=== PATIENT | male | born 1955 | race Caucasian/White ===

== ENCOUNTER 2020-02-01 08:55 | Day surgery (SDC) | payer OTHER, SELFPAY ==
[2020-01-25 11:03] VITALS: BMI 26.9
--- NOTE | 2020-01-30 09:35 | HO.ANESPROP2 ---
Documented by User: Blaire Priceney 01/30/20 09:37 HPI - Anesthesia Eval Consult details Narrative: 64yo M for EGD and Colonoscopy [facility] Past Medical History Medical History Diverticulosis Lab test negative for COVID-19 virus Surgical History Surgical History Hx of colonoscopy Social History Social History Smoking Status: Never smoker Use of substances other than those prescribed or required for medical reasons: No Advance Directives Information Provided: No Recently lost weight without trying: No Meds Allergies Allergy/AdvReac Type Severity Reaction Status Date / Time doxycycline [DOXYCYCLINE] Allergy Severe Anaphylaxis Verified 02/01/20 09:31 Home Medications Medication Instructions Recorded Confirmed Type omeprazole 20 mg PO DAILY 01/25/20 01/25/20 History Exam Exam Date and Time: January 30, 2020 0935 Height,Weight and Vital Signs: Height 6 ft Weight 90.265 kg Pertinent Lab Results Pertinent Lab Results: Laboratory Tests 01/01/20 01/01/20 19:15 19:15 WBC 6.7 Hgb 14.2 Hct 41.7 L Plt Count 212 Sodium 141 Potassium 4.4 Chloride 104 BUN 14 Creatinine 1.05 Assessment and Plan Assessment Anesthesia Assessment: Chart Reviewed Documented by User: Kaleb Amaro MD 02/01/20 10:06 [facility] Past Medical History Medical History Diverticulosis Lab test negative for COVID-19 virus Surgical History Surgical History Hx of colonoscopy Social History Social History Smoking Status: Never smoker Use of substances other than those prescribed or required for medical reasons: No Advance Directives Information Provided: No Recently lost weight without trying: No Meds Allergies Allergy/AdvReac Type Severity Reaction Status Date / Time doxycycline [DOXYCYCLINE] Allergy Severe Anaphylaxis Verified 02/01/20 09:31 Home Medications Medication Instructions Recorded Confirmed Type omeprazole 20 mg PO DAILY 01/25/20 01/25/20 History Exam Airway Mallampati Class: II TM Dist: >3cm Neck ROM: Full Heart: rrr Lungs: nl Other: ao Assessment and Plan Assessment Anesthesia Assessment: Anesthesia Plan Discussed and Chart Reviewed Final Anesthetic Review NPO: Yes ASA Class: I Final Preanesthetic Review: No Changes in Pt Med Stat, Meds/Allgs Chart Reviewed, Consent Obtained/Reviewed and Anes Risks/Benef Reviewed Patient Risk: Low Procedure Risk: Low Anesthetic Plan Anesthetic Plan: MAC: Disposition: Standard PACU
[2020-02-01 09:29] VITALS: BP 137/79; PULSE 62; RESP 16; TEMP 35.8; O2SAT 98
[2020-02-01] MEDS: Lactated Ringers 1,000 ML 100 ML IVCONT (09:32)
[2020-02-01 09:36] VITALS: BMI 27.1
--- NOTE | 2020-02-01 10:15 | MHC.SHP ---
Pre-Procedural Eval Section A The patient is an INPATIENT: No Changes since office visit: No Cold of Flu in the past 2 weeks, No New Medical Problems, No Changes in Medication and No Patient answered all questions The History & Physical has been completed within 30 days and I have reviewed it.: Yes Section B Chief Complaint: Abnormal Weight Loss, Rectal Bleeding Allergies: Allergies Allergy/AdvReac Type Severity Reaction Status Date / Time doxycycline [DOXYCYCLINE] Allergy Severe Anaphylaxis Verified 02/01/20 09:31 Plan Patient has been examined and remains a candidate for the planned procedure
--- NOTE | 2020-02-01 10:51 | P.PCN_ITS ---
Brief Operative Note Date of procedure: 02/01/20 Pre-op diagnosis: Episode rectal bleeding, Diverticulosis, abdominal pain, Pos itive family hx Post-op diagnosis: other (EGD neg. Colonoscopy: Diverticulosis l side, 1+ Internal Hemorrhoids) Procedure: EGD no bx, colonoscopy--no path Anesthesia: MAC (Nito Metzger CRNA) Surgeon: Tracie Wei Estimated blood loss (mL): 0 Pathology: none sent Condition: stable Disposition: PACU
[2020-02-01 10:52] VITALS: BP 94/56; PULSE 100; RESP 16; TEMP 35.9; O2SAT 97
[2020-02-01 10:56] VITALS: BP 104/64
[2020-02-01 11:06] VITALS: BP 117/68; PULSE 76; RESP 18; O2SAT 98
[2020-02-01 11:22] VITALS: BP 121/77; PULSE 82; RESP 20; TEMP 36.2; O2SAT 99
--- NOTE | 2020-02-01 11:41 | HO.POSTANES ---
Post Anesthesia Evaluation Post Anesthesia Evaluation Vital Signs: Vital Signs Temp Pulse Resp BP Pulse Ox 02/01/20 11:22 97.2 F 82 20 121/77 99 02/01/20 11:06 76 18 117/68 98 02/01/20 10:56 104/64 02/01/20 10:52 96.7 F L 100 16 94/56 L 97 02/01/20 09:29 96.5 F L 62 16 137/79 98 Anesthesia: Monitored Mental Status: Awake Pain Control: Satisfactory Nausea/Vomiting: None Hydration: Adequate Anesthesia-Related Issues: No Anes. Related Issues
--- NOTE | 2020-02-01 21:14 | OP_ITS ---
SURGEON: Tracie Wei MD PROCEDURE PERFORMED: EGD without biopsy, colonoscopy without biopsy. ESTIMATED BLOOD LOSS: None. COMPLICATIONS: None. ANESTHESIA: Monitored. ANESTHESIOLOGIST: Jeniffer Metzger CRNA. ASSISTANTS: No benefits assistant. SPECIMENS: No specimens removed. PREOPERATIVE DIAGNOSES: Episode of rectal bleeding and pain, for which the patient went to the emergency room; Question Diverticular bleed, Colon Cancer Screening, Abdominal pain. POSTOPERATIVE DIAGNOSES: EGD. Normal exam. Colonoscopy. Extensive diverticulosis. HVAC INSTALLATION TECHNICIAN: Dr. Wei. DESCRIPTION OF PROCEDURES: EGD: Video endoscope was introduced without difficulty. It was navigated into the posterior pharynx and into the esophagus. Esophageal mucosa was normal. GE junction was clear and distinct. On entering the stomach, mucosa was normal throughout. Duodenal bulb and duodenum had endoscopically normal villi. Ampullary area was seen and appeared normal. COLONOSCOPY: Prostate was not well felt. Video colonoscope was introduced without difficulty. It was navigated into the rectosigmoid and sigmoid area, slightly telescoped. There were diverticula present throughout this area. Once in the descending colon, we proceeded through transverse, ascending down into the cecum. Appendiceal orifice was seen. Ileocecal valve was well seen. Prep was excellent. Slow rotational views on withdrawing the scope. Anorectal verge was clear. 1+ internal hemorrhoids were seen. PLAN: Repeat colon cancer screening to be reconsidered in 5 years. Presumptive diverticular bleed is consistent with the current findings. Upper endoscopic evaluation shows no premalignant conditions or any acute findings. Further office followup may be appropriate if upper GI symptoms/pain persists. GRAFT OR IMPLANTS: No grafts or implants. CONDITION: Postprocedure, stable. Tracie Wei MD MEN/MODL / [id number] [facility]
== END 2020-02-01 12:01 | disposition home or self-care (01) ==
PROVIDERS: Internal Medicine Gastroenterology; PCP Hospitalist; Visit Provider Internal Medicine
PROC: (CPT 45378; principal; 2020-02-01 10:00)
DX: K62.5 Hemorrhage of anus and rectum (principal); R10.9 Unspecified abdominal pain; Z80.0 Family history of malignant neoplasm of digestive organs; K57.30 Diverticulosis of large intestine without perforation or abscess without bleeding; K64.8 Other hemorrhoids; Z79.899 Other long term (current) drug therapy; Z88.1 Allergy status to other antibiotic agents
CPT/HCPCS: 45378; 43235

== ENCOUNTER → 2020-02-26 14:43 | Outpatient (BNVA) | payer OTHER, SELFPAY | PROVIDERS: PCP Hospitalist; Referring Provider Hospitalist; Visit Provider Internal Medicine Gastroenterology | DX: Z76.89 Persons encountering health services in other specified circumstances (principal) ==

== ENCOUNTER 2020-06-05 10:33 | Emergency (ER) | payer OTHER, SELFPAY ==
--- NOTE | ~2020-06-05 | CT_ITS ---
EXAMINATION: CT ABDOMEN AND PELVIS WITH CONTRAST CLINICAL INFORMATION: Left lower quadrant abdominal pain with diarrhea and nausea. COMPARISON: CT abdomen and pelvis 01/01/2020. TECHNIQUE: Multidetector volumetric images were obtained from the superior aspect of the liver through the pubic symphysis following administration 85 mL of Omnipaque 350 intravenous contrast. Sagittal and coronal reformatted images were obtained on the technologist's workstation. Oral Contrast: No. This CT examination was performed using dose optimization techniques as appropriate, variously including the following: *Automated exposure control. *Adjustment of mA and/or kV according to patient size (this includes techniques or standardized protocols for targeted exams where dose is matched to indication/reason for exam; i.e. extremities or head). *Use of iterative reconstruction technique. DLP: 623 mGy-cm FINDINGS: LUNG BASES: See report of chest CT same day. Bibasilar atelectasis. LIVER, GALLBLADDER, AND BILIARY TREE: The liver is normal in size but demonstrates slightly decreased attenuation with focal areas of sparing around the gallbladder. Findings are consistent with hepatic steatosis. No focal liver mass or bile duct dilatation is seen. The gallbladder is unremarkable with no evidence of radiopaque gallstones, gallbladder wall thickening, or obvious pericholecystic inflammatory changes. PANCREAS: Unremarkable. SPLEEN: Unremarkable. ADRENAL GLANDS: Unremarkable. KIDNEYS AND URETERS: The kidneys are normal in size, shape, and attenuation. No hydronephrosis, hydroureter, or calculi seen. A large right lower pole renal cyst is again seen along with a tiny cortical left lower pole cyst. No perinephric stranding. BLADDER: Unremarkable. GASTROINTESTINAL TRACT: A posterior 2 cm gastric diverticulum is present and unchanged when compared to the prior study. Extensive diverticular changes are present in the sigmoid colon with scattered diverticula elsewhere. No evidence of diverticulitis. The small and large bowel are otherwise unremarkable. The appendix is unremarkable. ABDOMINAL WALL: No significant hernia is appreciated. A tiny periumbilical hernia is seen containing only fat. LYMPH NODES: No lymphadenopathy. VASCULAR: Unremarkable. PELVIC VISCERA: Unremarkable. OSSEOUS STRUCTURES: Unremarkable. CT/CT abdomen pelvis w con IMPRESSION: Extensive sigmoid diverticulosis without evidence of diverticulitis. A definitive etiology for the patient's acute left lower quadrant pain, diarrhea and nausea has not been found. Incidentally noted hepatic steatosis, renal cysts and small gastric diverticulum.
--- NOTE | ~2020-06-05 | CT_ITS ---
EXAMINATION: CT ANGIOGRAM OF THE CHEST WITH AND WITHOUT CONTRAST (CT PULMONARY ANGIOGRAM FOR PE) CLINICAL INFORMATION: Reason for Exam pt c dizziness, chest pain/sob and llq abd pain COMPARISON: None TECHNIQUE: Prior to contrast administration, noncontrast localization images were obtained. Subsequently, multidetector volumetric imaging was performed from the thoracic inlet to below the diaphragms following the administration of 85 mL Omnipaque 350 intravenous contrast. No contrast reaction reported Sagittal, coronal, and MIP oblique sagittal reformatted images were obtained on the CT workstation, uploaded to PACS, and reviewed. This CT examination was performed using dose optimization techniques as appropriate, variously including the following: *Automated exposure control *Adjustment of mA and/or kV according to patient size (this includes techniques or standardized protocols for targeted exams where dose is matched to indication/reason for exam; i.e. extremities or head) *Use of iterative reconstruction technique Total exam dose-length product 306 mGy-cm FINDINGS: QUALITY OF STUDY/CONTRAST BOLUS: Satisfactory. PULMONARY ARTERIES: No central or segmental pulmonary emboli. THORACIC AORTA: No aneurysm or dissection. LUNG: No focal consolidation, nodules or masses. Mild bibasilar atelectasis is present. PLEURA: No pleural effusion or pneumothorax. MEDIASTINUM: Normal heart size. Mild calcifications present in the left anterior descending artery. No pericardial effusion. No hilar or mediastinal lymphadenopathy. No evidence of septal bowing or right heart strain. CHEST WALL/AXILLA: No axillary or internal mammary lymphadenopathy. OSSEOUS STRUCTURES: No acute or suspicious osseous abnormality. Degenerative changes noted throughout the spine. UPPER ABDOMEN: Unremarkable. No reflux of contrast into the hepatic veins to suggest elevated right heart pressures. CT/CT angio chest PE protocol IMPRESSION: No evidence of pulmonary emboli. A cause for the patient's chest pain has not been found. VTE: negative
--- NOTE | ~2020-06-05 | CT_ITS ---
EXAMINATION: CT HEAD WITHOUT CONTRAST CLINICAL INFORMATION: Dizziness. Headaches. COMPARISON: None. TECHNIQUE: Contiguous axial imaging was performed from the skull base to vertex without intravenous administration of contrast. Coronal and sagittal reformatted images are performed at the CT scanner. [This CT examination was performed using dose optimization techniques as appropriate, variously including the following: *Automated exposure control *Adjustment of mA and/or kV according to patient size (this includes techniques or standardized protocols for targeted exams where dose is matched to indication/reason for exam; i.e. extremities or head) *Use of iterative reconstruction technique] DLP: 843.49+5.12 mGy-cm. FINDINGS: There is no evidence of acute intracranial hemorrhage or territorial infarction. No abnormal mass-effect or midline shift is seen. Butt to white matter differentiation is well preserved. No extra-axial fluid collections are identified. There is age-appropriate atrophy with prominence of the ventricles and the sulci and hypodensity of the periventricular white matter due to chronic small vessel ischemic disease. There are vascular calcifications of the internal carotid arteries bilaterally. There is no osseous abnormality. The mastoid air cells and visualized portions of the paranasal sinuses are well-aerated. CT/CT head/brain wo con IMPRESSION: No acute intracranial pathology.
[2020-06-05 13:59] VITALS: BP 148/91; PULSE 66; RESP 20; TEMP 36.5; O2SAT 97; BMI 27.6
[2020-06-05 16:00] VITALS: BP 133/77; PULSE 59; RESP 16; TEMP 36.4; O2SAT 98
--- NOTE | 2020-06-05 16:26 | ECG_ITS ---
Test Reason : WEAKNESS Blood Pressure : / mmHG Vent. Rate : 059 BPM Atrial Rate : 059 BPM P-R Int : 152 ms QRS Dur : 104 ms QT Int : 440 ms P-R-T Axes : 046 -43 031 degrees QTc Int : 435 ms Sinus bradycardia Left axis deviation Abnormal ECG When compared with ECG of 08-DEC-2018 09:15, No significant change was found Referred By: Kaley Cordero Electronically Signed By:Vamshi Max
[2020-06-05] MEDS: 0.9 % Sodium Chloride 1,000 ML 999 ML IVCONT (17:14)
[2020-06-05 17:24] LABS: MANUAL DIFF FLAG NO
[2020-06-05 17:28] LABS: Basophils Percent Auto 0.6 % (0-2); Eosinophils Absolute Auto 0.1 X10*3/uL (0.0-0.4); Eosinophils Percent Auto 1.4 % (0-4); Hematocrit 42.6 % (42-52); Hemoglobin 14.7 g/dl (14.0-18.0); Imm Gran Abs Auto 0.02 X10*3/uL (0.00-0.03); Imm Gran Pct Auto 0.3 % (0.0-0.4); Lymphocytes Absolute Auto 2.2 X10*3/uL (1.2-4.9); Lymphocytes Percent Auto 33.3 % (20-40); Mean Corpuscular HGB Conc 34.5 g/dl (31.0-36.0); Mean Corpuscular Hemoglobin 31.9 pg (27.0-33.0); Mean Corpuscular Volume 92.4 fL (80-98); Mean Platelet Volume 11.5 fL (9.4-12.4); Monocytes Absolute Auto 0.5 X10*3/uL (0.1-1.2); Monocytes Percent Auto 7.5 % (2-11); Neutrophils Absolute Auto 3.8 X10*3/uL (2.0-8.3); Neutrophils Percent Auto 56.9 % (45-73); Platelet Count 208 X10*3/uL (160-400); Red Blood Count 4.61 X10*6/uL (4.60-5.80); Red Cell Distribution Width 12.8 % (11.0-16.0); White Blood Count 6.6 X10*3/uL (4.8-10.8)
[2020-06-05 17:34] LABS: Prothrombin Time 12.1 SEC (10.8-13.0)
--- NOTE | 2020-06-05 17:37 | ED_ITS ---
HPI - General Adult General Chief complaint: Dyspnea Stated complaint: sob - not feeling well Time Seen by Provider: 06/05/20 16:17 Source: patient Mode of arrival: ambulatory Limitations: no limitations History of Present Illness HPI narrative: 64-year-old male with a past medical history of diverticulosis/diverticulitis and rectal bleeding presenting to the ED with multiple complaints which include generalized weakness, dizziness, intermittent headaches, nasal congestion, productive cough in the morning, shortness of breath, dyspnea on exertion, chest discomfort over the past 8 months worse this month and over the past few days. Reports he has also had left lower quadrant abdominal pain and diarrhea over the past few days. Reports he had a telehealth call with his primary care provider who placed him on amoxicillin a few months ago although he reports no symptomatic relief and he feels like his symptoms have gotten worse. He was going to follow-up with the ear nose and throat doctor although they offer a telehealth call and he was not comfortable with that therefore he came here for further evaluation and treatment. Denies any fevers, chills, nausea/vomiting, palpitations, jaw pain, extremity edema, back pain, focal weakness, constipation, dysuria or any other symptoms complaints or concerns at this time. Related Data Home Medications Medication Instructions Recorded Confirmed omeprazole 20 mg PO DAILY 01/25/20 01/25/20 Previous Rx's Medication Instructions Recorded magnesium oxide 400 - 800 mg PO BEDTIME 30 Days 02/27/20 #60 tab amoxicillin-pot clavulanate 1 tab PO BID 10 Days #20 tab 06/05/20 [Augmentin] metronidazole [Flagyl] 500 mg PO BID 10 Days #20 tab 06/05/20 ondansetron HCl [Zofran] 4 mg PO Q8H PRN #14 tab 06/05/20 prednisone 40 mg PO DAILY 5 Days #10 tab 06/05/20 Allergies Allergy/AdvReac Type Severity Reaction Status Date / Time doxycycline [DOXYCYCLINE] Allergy Severe Anaphylaxis Verified 02/26/20 14:44 Review of Systems Review of Systems: Constitutional : No Weight loss, No Fever, No Chills, No Night Sweats, No Fatigue, No Malaise ENT/Mouth : No Hearing loss, No Ear Pain, No Nasal Congestion, No Sinus Pain, No Hoarseness, No sore throat, No Rhinorrhea, No Swallowing Difficulty Eyes: No Eye Pain, No Swelling, No Redness, No Foreign Body, No Discharge, No Vision Changes Cardiovascular : + Chest Pain, + SOB, + Dyspnea on Exertion, No Orthopnea, No Edema, No Palpitations Respiratory : + Cough, + Sputum, No Wheezing, No Smoke Exposure, No Dyspnea Gastrointestinal : No Nausea, No Vomiting, + Diarrhea, No Constipation, + abdominal Pain, No Hematochezia, No Melena Genitourinary : no irregular bleeding, No Dysuria, No Urinary Frequency, No Hematuria, No Urinary Incontinence, No Urgency, No Flank Pain, No Urinary Flow C hanges, No Hesitancy Musculoskeletal : No joint pain, No Myalgias, No Joint Swelling Skin : No Skin Lesions, No rash Neuro : No Weakness, No Numbness, No Paresthesias, No Loss of Consciousness, + Dizziness, + Headache Psych : No Anxiety/Panic, No Depression, No SI/HI/AH/VH, No Social Issues, Heme/Lymph: No Bruising, No Bleeding,No Lymphadenopathy Endocrine : No Polyuria, No Polydipsia, No Temperature Intolerance Yes all other systems are reviewed and are negative [facility] Past Medical History Attestation statement: The following information was validated with the patient. Medical History Diverticulosis Diverticulosis of colon Family history of colon cancer in mother Lab test negative for COVID-19 virus Postprandial abdominal bloating Rectal bleeding Surgical History History of esophagogastroduodenoscopy (EGD) Hx of colonoscopy Family History Family History Mother Colon cancer Other Family history of colon cancer in mother Social History Social History Alcohol intake: current Alcohol intake frequency: a few times a week Alcohol type: beer Smoking Status: Never smoker Advance Directives: No Advance Directives Information Provided: Yes Physical Exam Vital Signs: Vital Signs: Last Vital Signs Temp 97.5 F 06/05/20 16:00 Pulse 59 06/05/20 16:00 Resp 16 06/05/20 16:00 BP 133/77 06/05/20 16:00 Pulse Ox 98 06/05/20 16:00 Body Mass Index 27.6 vital signs have been reviewed as normal and appeared to be correct. Blood pressure normal. Heart rate normal. Respiration rate normal. Temperature normal. Oxygen saturation normal. Appearance: Alert. Oriented X3. No acute distress. Head: Normal external exam. Normocephalic. Atraumatic. Able to rotate head bilaterally. Eyes: PERRLA. EOMI. No nystagmus noted. Conjunctiva and sclera normal. Eyelids normal. Corneal reflex normal. ENT: EAC normal. TM's Normal. Hearing normal. Pharynx normal. Uvula midline. tongue midline. Moist mucous membranes. No trismus noted. No drooling noted. No muffled voice noted. No nystagmus noted. Neck: Normal inspection. Neck supple. FROM. No adenopathy. Trachea midline. Thyroid Normal. No meningeal signs. No neck mass noted. CVS: Normal heart rate and rhythm. Heart sound normal. No murmurs noted. Pulses normal throughout. Respiratory: No respiratory distress. Painless inspiration. Breath sounds normal. No wheezes/rales/rhonchi noted. Chest nontender. No accessory muscle usage noted or decreased air movement noted. Abdomen: Soft and mild tenderness to palpations the left lower quadrant.. Nondistended. No guarding. No rigidity. Bowel sounds normal in all 4 quadrants. No distention noted. No organomegaly noted. No visible injury noted. No r ebound tenderness. Negative Rovsing sign. Negative obturator's sign. Negative psoas sign. Negative Og sign. Back: No CVA tenderness. Full range of motion noted. Skin: Skin warm and dry. Normal skin color. Normal skin turgor. No rashes/lesions/lacerations noted. Extremities: No lower extremity edema. Extremities exhibit normal range of motion. Extremities nontender. Able to shrug shoulders bilaterally and keep up against resistance. Neuro: Oriented X 3. No motor deficit. No sensory deficit. Reflexes normal. Moving all extremities. No focal motor deficits. Cranial nerves II-XI intact bilaterally. Facial strength normal. Normal cognition. Speech normal. Gait normal. Strength 5/5 throughout. No pronator drift. No tremor noted. No fasciculations noted. No rigidity noted. Muscle tone normal throughout. No asterixis noted. [id number] test normal. Heel to herrera test normal. Tandem gait normal. Does not sway with eyes open. Romberg test negative. Rapid alternating movement upper extremity normal. Rapid alternating movement lower extremity normal. Hand drop from overhead Misses face. NIHSS score 0. Course Course Course Narrative: 16:30pm - 64-year-old male with a past medical history of diverticulosis/diverticulitis and rectal bleeding presenting to the ED with multiple complaints which include generalized weakness, dizziness, intermittent headaches, nasal congestion, productive cough in the morning, shortness of breath, dyspnea on exertion, chest discomfort over the past 8 months worse this month and over the past few days. - on exam patient is alert and oriented x3. Vital signs are stable within normal limits. Nontoxic appearing. No focal neuro deficits noted. NIH SS score 0. No tPA indicated as non disabling symptoms. - Plan: Labs, CT scan of brain, Chest CT for PE, CT scan of abd/pelvis c IV contrast, EKG then re-evaluate. Reevaluation(s) Reevaluation #1: - patient positive for COVID. - all other labs within normal limits. - EKG was sinus bradycardia no acute ischemic changes noted. - awaiting CT scan of brain/CTA of chest for PE and CT scan of abdomen and pelv is will re-evaluate. Time: 19:03 Reevaluation #2: - CT scan of brain within normal limits no acute processes noted. - CTA of chest for PE negative for PE. - CT scan of abdomen and pelvis revealed extensive sigmoid diverticulosis without evidence of diverticulitis otherwise no other acute processes noted. 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 And to return if any new or worsening symptoms. Patient understands agrees the plan. Time: 19:49 Medical Decision Making Medical Records Medical records reviewed: Yes I reviewed the patient's medical records. Lab Data Lab results reviewed: Yes I reviewed the patient's lab results. Result diagrams: 06/05/20 17:16 06/05/20 17:16 Labs: Lab Results 06/05/20 06/05/20 06/05/20 Range/Units 17:15 17:16 17:16 WBC 6.6 (4.8-10.8) X10*3/uL RBC 4.61 (4.60-5.80) X10*6/uL Hgb 14.7 (14.0-18.0) g/dl Hct 42.6 (42-52) % MCV 92.4 (80-98) fL MCH 31.9 (27.0-33.0) pg MCHC 34.5 (31.0-36.0) g/dl RDW 12.8 (11.0-16.0) % Plt Count 208 (160-400) X10*3/uL MPV 11.5 (9.4-12.4) fL Immature Gran % (Auto) 0.3 (0.0-0.4) % Neut % (Auto) 56.9 (45-73) % Lymph % (Auto) 33.3 (20-40) % [place] % (Auto) 7.5 (2-11) % Eos % (Auto) 1.4 (0-4) % Baso % (Auto) 0.6 (0-2) % Lymph # (Auto) 2.2 (1.2-4.9) X10*3/uL [place] # (Auto) 0.5 (0.1-1.2) X10*3/uL Eos # (Auto) 0.1 (0.0-0.4) X10*3/uL Baso # (Auto) 0.0 (0.0-0.2) X10*3/uL Abs Immat Gran (auto) 0.02 (0.00-0.03) X10*3/uL Absolute Neuts (auto) 3.8 (2.0-8.3) X10*3/uL Absolute Nucleated RBC 0.000 (0.0-0.012) X10*3/uL Nucleated RBC % (auto) 0.0 (0.0-0.2) /100WBC PT 12.1 (10.8-13.0) SEC INR 1.0 (0.9-1.1) Sodium (135-145) mmol/L Potassium (3.3-5.1) mmol/L Chloride (96-108) mmol/L Carbon Dioxide (22-29) mmol/L Anion Gap (12-20) BUN (9-16) mg/dL Creatinine (0.5-1.4) mg/dL Estim Creat Clear Calc Estimated GFR Random Glucose (60-115) mg/dL Calcium (8.4-10.2) mg/dL Magnesium (1.6-2.6) mg/dL Total Bilirubin (0.0-1.0) mg/dL Direct Bilirubin (0.0-0.5) mg/dL AST (5-37) U/L ALT (0-40) U/L Alkaline Phosphatase (39-117) U/L Troponin I High Sens (<3.5-35.0) ng/L B-Natriuretic Peptide (<100) pg/mL Total Protein (6.5-8.0) g/dL Albumin (3.5-5.0) g/dL Coronavirus (PCR) POSITIVE A (Negative) Influenza Type A (PCR) NEGATIVE (Negative) Influenza Type B (PCR) NEGATIVE (Negative) RSV RNA Qual (PCR) NEGATIVE (Negative) 06/05/20 06/05/20 Range/Units 17:16 17:16 WBC (4.8-10.8) X10*3/uL RBC (4.60-5.80) X10*6/uL Hgb (14.0-18.0) g/dl Hct (42-52) % MCV (80-98) fL MCH (27.0-33.0) pg MCHC (31.0-36.0) g/dl RDW (11.0-16.0) % Plt Count (160-400) X10*3/uL MPV (9.4-12.4) fL Immature Gran % (Auto) (0.0-0.4) % Neut % (Auto) (45-73) % Lymph % (Auto) (20-40) % [place] % (Auto) (2-11) % Eos % (Auto) (0-4) % Baso % (Auto) (0-2) % Lymph # (Auto) (1.2-4.9) X10*3/uL [place] # (Auto) (0.1-1.2) X10*3/uL Eos # (Auto) (0.0-0.4) X10*3/uL Baso # (Auto) (0.0-0.2) X10*3/uL Abs Immat Gran (auto) (0.00-0.03) X10*3/uL Absolute Neuts (auto) (2.0-8.3) X10*3/uL Absolute Nucleated RBC (0.0-0.012) X10*3/uL Nucleated RBC % (auto) (0.0-0.2) /100WBC PT (10.8-13.0) SEC INR (0.9-1.1) Sodium 140 (135-145) mmol/L Potassium 4.8 (3.3-5.1) mmol/L Chloride 103 (96-108) mmol/L Carbon Dioxide 29 (22-29) mmol/L Anion Gap 13 (12-20) BUN 13 (9-16) mg/dL Creatinine 0.97 (0.5-1.4) mg/dL Estim Creat Clear Calc 83.3 Estimated GFR > 60 Random Glucose 87 (60-115) mg/dL Calcium 9.1 (8.4-10.2) mg/dL Magnesium 2.1 (1.6-2.6) mg/dL Total Bilirubin 0.8 (0.0-1.0) mg/dL Direct Bilirubin 0.3 (0.0-0.5) mg/dL AST 21 (5-37) U/L ALT 24 (0-40) U/L Alkaline Phosphatase 51 (39-117) U/L Troponin I High Sens < 3.5 (<3.5-35.0) ng/L B-Natriuretic Peptide < 10 (<100) pg/mL Total Protein 7.0 (6.5-8.0) g/dL Albumin 4.2 (3.5-5.0) g/dL Coronavirus (PCR) (Negative) Influenza Type A (PCR) (Negative) Influenza Type B (PCR) (Negative) RSV RNA Qual (PCR) (Negative) Imaging Data CT scan of brain: Attestation: I personally reviewed and interpreted this imaging study as follows: Radiologist's impression: FINDINGS: There is no evidence of acute intracranial hemorrhage or territorial infarction. No abnormal mass-effect or midline shift is seen. Butt to white matter differentiation is well preserved. No extra-axial fluid collections are identified. There is age-appropriate atrophy with prominence of the ventricles and the sulci and hypodensity of the periventricular white matter due to chronic small vessel ischemic disease. There are vascular calcifications of the internal carotid arteries bilaterally. There is no osseous abnormality. The mastoid air cells and visualized portions of the paranasal sinuses are well-aerated. CT/CT head/brain wo con IMPRESSION: No acute intracranial pathology. CT scan of chest for PE: Attestation: I personally reviewed and interpreted this imaging study as follows: Radiologist's impression: FINDINGS: QUALITY OF STUDY/CONTRAST BOLUS: Satisfactory. PULMONARY ARTERIES: No central or segmental pulmonary emboli. THORACIC AORTA: No aneurysm or dissection. LUNG: No focal consolidation, nodules or masses. Mild bibasilar atelectasis is present. PLEURA: No pleural effusion or pneumothorax. MEDIASTINUM: Normal heart size. Mild calcifications present in the left anterior descending artery. No pericardial effusion. No hilar or mediastinal lymphadenopathy. No evidence of septal bowing or right heart strain. CHEST WALL/AXILLA: No axillary or internal mammary lymphadenopathy. OSSEOUS STRUCTURES: No acute or suspicious osseous abnormality. Degenerative changes noted throughout the spine. UPPER ABDOMEN: Unremarkable. No reflux of contrast into the hepatic veins to suggest elevated right heart pressures. CT/CT angio chest PE protocol IMPRESSION: No evidence of pulmonary emboli. A cause for the patient's chest pain has not been found. VTE: negative CT scan of abdomen and pelvis with IV contrast: Attestation: I personally reviewed and interpreted this imaging study as follows: Radiologist's impression: FINDINGS: LUNG BASES: See report of chest CT same day. Bibasilar atelectasis. LIVER, GALLBLADDER, AND BILIARY TREE: The liver is normal in size but demonstrates slightly decreased attenuation with focal areas of sparing around the gallbladder. Findings are consistent with hepatic steatosis. No focal liver mass or bile duct dilatation is seen. The gallbladder is unremarkable with no evidence of radiopaque gallstones, gallbladder wall thickening, or obvious pericholecystic inflammatory changes. PANCREAS: Unremarkable. SPLEEN: Unremarkable. ADRENAL GLANDS: Unremarkable. KIDNEYS AND URETERS: The kidneys are normal in size, shape, and attenuation. No hydronephrosis, hydroureter, or calculi seen. A large right lower pole renal cyst is again seen along with a tiny cortical left lower pole cyst. No perinephric stranding. BLADDER: Unremarkable. GASTROINTESTINAL TRACT: A posterior 2 cm gastric diverticulum is present and unchanged when compared to the prior study. Extensive diverticular changes are present in the sigmoid colon with scattered diverticula elsewhere. No evidence of diverticulitis. The small and large bowel are otherwise unremarkable. The appendix is unremarkable. ABDOMINAL WALL: No significant hernia is appreciated. A tiny periumbilical hernia is seen containing only fat. LYMPH NODES: No lymphadenopathy. VASCULAR: Unremarkable. PELVIC VISCERA: Unremarkable. OSSEOUS STRUCTURES: Unremarkable. CT/CT abdomen pelvis w con IMPRESSION: Extensive sigmoid diverticulosis without evidence of diverticulitis. A definitive etiology for the patient's acute left lower quadrant pain, diarrhea and nausea has not been found. Incidentally noted hepatic steatosis, renal cysts and small gastric diverticulum. ECG Data Attestation: I personally reviewed and interpreted this ECG as follows: Interpretation: Sinus bradycardia with ventricular rate of 59 with left axis deviation otherwise no acute ischemic changes noted. Discharge Plan Discharge Clinical Impression: COVID-19, Diverticulosis Patient Disposition: Home, Self-Care Instructions: Diverticulosis (ED), COVID-19 (Coronavirus Disease 2019) (ED) Additional Instructions: You tested positive for COVID-19. At this time you will be okay for discharge. Please plan for self quarantine for up to 14 days. Do not expose yourself to others. You may not go to work. If testing does come back negative you may return to activities as long as you are no longer having any symptoms for at least 3 days. Please continue to follow cold instructions and wash your hands frequently. You may take Tylenol as directed on the bottle for pain or fever. Patient seen in the emergency department on 06/05/2020 and should be excused from work until negative test results AND until 72 hours without any symptoms AND at least 10 days have passed since symptoms first appeared or since last exposure to COVID-19 positive patient CDC Guidelines for home isolation: - Stay away from others - WEAR A MASK if you are sick AND STAY HOME - Cover your mouth and nose with a tissue when you cough or sneeze. Dispose of tissues in a lined trash can and wash your hands immediately with soap and water for at least 20 seconds. If soap and water are not available, clean hands with alcohol-based hand inventory planner that contains at least 60% alcohol. - Clean your hands often with soap and water for at least 20 seconds - Avoid touching your eyes, nose and mouth with unwashed hands - Do not share dishes, drinking glasses, cups, eating utensils, towels, or bedding with other people in your home. After using these items, wash them thoroughly with soap and water or put in the security escort. - Clean high-touch surfaces in your isolation area ( sick room and bathroom) every day; let a caregiver clean and disinfect high-touch surfaces in other areas of the home. Clean the area or item with soap and water or another detergent if it is dirty. Then, use a household disinfectant. - Limit contact with pets and animals: If you must care for a pet, wash your hands before and after interacting with them). Prescriptions: New ondansetron HCl [Zofran] 4 mg tablet 4 mg PO Q8H PRN (Reason: nausea and vomiting) Qty: 14 RF: 0 metronidazole [Flagyl] 500 mg tablet 500 mg PO BID 10 Days Qty: 20 RF: 0 amoxicillin-pot clavulanate [Augmentin] 875-125 mg tablet 1 tab PO BID 10 Days Qty: 20 RF: 0 prednisone 20 mg tablet 40 mg PO DAILY 5 Days Qty: 10 RF: 0 No Action omeprazole 20 mg Tablet,Delayed Release (Dr/Ec) 20 mg PO DAILY RF: 0 magnesium oxide 400 mg magnesium tablet 400 - 800 mg PO BEDTIME 30 Days Qty: 60 RF: 3 Referrals: Dung Palmer [Primary Care Provider] - 2 days Stand Alone Forms: Work/School Release Print Language: Bel[place]ian
[2020-06-05 17:51] LABS: Alanine Aminotransferase 24 U/L (0-40); Albumin Level 4.2 g/dL (3.5-5.0); Alkaline Phosphatase 51 U/L (39-117); Anion Gap 13 (12-20); Aspartate Amino Transferase 21 U/L (5-37); Bilirubin Direct 0.3 mg/dL (0.0-0.5); Bilirubin Total 0.8 mg/dL (0.0-1.0); Blood Urea Nitrogen 13 mg/dL (9-16); Calcium 9.1 mg/dL (8.4-10.2); Carbon Dioxide 29 mmol/L (22-29); Chloride 103 mmol/L (96-108); Creatinine Clr Calc Pharmacy 83.3; Estimated Glomerular Filt Rate > 60; Glucose Random 87 mg/dL (60-115); Magnesium 2.1 mg/dL (1.6-2.6); Potassium 4.8 mmol/L (3.3-5.1); Sodium 140 mmol/L (135-145)
[2020-06-05 17:54] LABS: B Type Natriuretic Peptide < 10 pg/mL (<100); Troponin-I High Sensitivity < 3.5 ng/L (<3.5-35.0)
[2020-06-05 18:00] VITALS: BP 134/86; PULSE 58; RESP 16; TEMP 36.5; O2SAT 98
[2020-06-05 18:24] LABS: Influenza A PCR NEGATIVE (Negative); Influenza B PCR NEGATIVE (Negative); Resp Syncy Virus RNA Qual PCR NEGATIVE (Negative); SARS COV2 PCR INHOUSE POSITIVE (Negative)
[2020-06-05] MEDS: iohexoL 350 MG/ML 100 ML INFUS..BTL IV (18:33)
[2020-06-05 19:55] VITALS: BP 144/83; PULSE 58; RESP 16; TEMP 36.6; O2SAT 97
[2020-06-05 20:11] VITALS: BP 138/84; PULSE 60; RESP 16; O2SAT 96
--- NOTE | 2020-06-05 20:12 | PC.NURSE ---
This RN rec'd report from AMY Rosales and assumed care for pt at 1915. Pt aaox4, resting on stretcher in NAD, breathing with ease on RA. Pt denies pain/discomfort, denies SOB at this time. Pt aware of Covid diagnosis, is aware and agreeable to plan for DC with quarantine per CDC guidelines. Pt offers no complaints/concerns at this time.
[2020-06-05 20:17] LABS: Glucose Urine UA NEG (NEG); Leukocyte Esterase Urine NEG (NEG); Nitrite Urine NEG (NEG); PH 7.5 (5.0-8.0); Urine Blood NEG (NEG); Urine Ketones NEG (NEG); Urine Protein NEG (NEG-TRACE)
[2020-06-05 20:19] LABS: Appearance Urine CLEAR; Color Urine YELLOW
== END 2020-06-05 20:22 | disposition home or self-care (01) ==
PROVIDERS: Physician Assistant Medical; Emergency Provider Emergency Medicine; PCP Hospitalist
DX: U07.1 COVID-19 (principal); K57.30 Diverticulosis of large intestine without perforation or abscess without bleeding; R06.02 Shortness of breath; Z79.899 Other long term (current) drug therapy
CPT/HCPCS: 0241U; 36415; 70450; 71275; 74177; 80048; 80076; 81003; 83735; 83880; 84484; 85025; 85610; 93005; 96360; 99284; Q9967

== ENCOUNTER 2021-02-04 18:17 | Emergency (ER) | payer OTHER, SELFPAY ==
--- NOTE | ~2021-02-04 | CT_ITS ---
EXAMINATION: CT ABDOMEN AND PELVIS WITH CONTRAST CLINICAL INFORMATION: Left lower quadrant pain COMPARISON: 06/05/2020 TECHNIQUE: Multidetector volumetric images were obtained from the superior aspect of the liver through the pubic symphysis following administration 85 mL of Omnipaque 350 intravenous contrast. Sagittal and coronal reformatted images were obtained on the technologist's workstation. Oral contrast: No This CT examination was performed using dose optimization techniques as appropriate, variously including the following: *Automated exposure control *Adjustment of mA and/or kV according to patient size (this includes techniques or standardized protocols for targeted exams where dose is matched to indication/reason for exam; i.e. extremities or head) *Use of iterative reconstruction technique DLP: 611 mGy-cm FINDINGS: LUNG BASES: The visualized lung bases demonstrate subsegmental atelectasis. LIVER, GALLBLADDER, AND BILIARY TREE: The liver is normal in size, shape, and attenuation. No focal hepatic lesion or biliary ductal dilatation is present. The gallbladder is unremarkable with no evidence of radiopaque gallstones, gallbladder wall thickening, or obvious pericholecystic inflammatory changes. PANCREAS: Unremarkable. SPLEEN: Unremarkable. ADRENAL GLANDS: Unremarkable. KIDNEYS AND URETERS: The kidneys are normal in size, shape, and attenuation. No hydronephrosis, hydroureter, or obstructing calculi seen. Redemonstrated right renal cysts; no follow-up required. BLADDER: Unremarkable. GASTROINTESTINAL TRACT: Small gastric diverticulum noted off the fundus. No evidence of bowel obstruction. There is colonic diverticulosis without convincing evidence for diverticulitis. No significant bowel wall thickening is seen. The appendix is unremarkable. No free fluid or free air is seen. ABDOMINAL WALL: No significant hernia is appreciated. LYMPH NODES: Normal. VASCULAR: Scattered atherosclerotic calcifications are noted. PELVIC VISCERA: Unremarkable. OSSEOUS STRUCTURES: Scattered degenerative changes are noted in the spine. CT/CT abdomen pelvis w con IMPRESSION: No acute findings identified in the abdomen/pelvis. Colonic diverticulosis without convincing diverticulitis.
[2021-02-04 19:21] VITALS: BP 125/80; PULSE 65; RESP 18; TEMP 36.8; O2SAT 98; BMI 28.4
[2021-02-04 19:49] LABS: MANUAL DIFF FLAG NO
[2021-02-04 19:50] LABS: Basophils Absolute Auto 0.1 X10*3/uL (0.0-0.2); Basophils Percent Auto 0.7 % (0-2); Eosinophils Absolute Auto 0.2 X10*3/uL (0.0-0.4); Eosinophils Percent Auto 1.9 % (0-4); Hematocrit 44.3 % (42-52); Hemoglobin 15.6 g/dl (14.0-18.0); Imm Gran Abs Auto 0.02 X10*3/uL (0.00-0.03); Imm Gran Pct Auto 0.2 % (0.0-0.4); Lymphocytes Absolute Auto 2.1 X10*3/uL (1.2-4.9); Lymphocytes Percent Auto 24.5 % (20-40); Mean Corpuscular HGB Conc 35.2 g/dl (31.0-36.0); Mean Corpuscular Hemoglobin 32.9 pg (27.0-33.0); Mean Corpuscular Volume 93.5 fL (80-98); Mean Platelet Volume 10.8 fL (9.4-12.4); Monocytes Absolute Auto 0.6 X10*3/uL (0.1-1.2); Monocytes Percent Auto 6.4 % (2-11); Neutrophils Absolute Auto 5.7 X10*3/uL (2.0-8.3); Neutrophils Percent Auto 66.3 % (45-73); Platelet Count 234 X10*3/uL (160-400); Red Blood Count 4.74 X10*6/uL (4.60-5.80); Red Cell Distribution Width 12.2 % (11.0-16.0); White Blood Count 8.6 X10*3/uL (4.8-10.8)
[2021-02-04 20:04] LABS: Alanine Aminotransferase 20 U/L (0-40); Albumin Level 4.2 g/dL (3.5-5.0); Alkaline Phosphatase 57 U/L (39-117); Anion Gap 12 (12-20); Aspartate Amino Transferase 19 U/L (5-37); Bilirubin Total 0.7 mg/dL (0.0-1.0); Blood Urea Nitrogen 11 mg/dL (9-16); Calcium 9.2 mg/dL (8.4-10.2); Carbon Dioxide 28 mmol/L (22-29); Chloride 105 mmol/L (96-108); Creatinine Clr Calc Pharmacy 76.7; Estimated Glomerular Filt Rate > 60; Glucose Random 94 mg/dL (60-115); Potassium 4.3 mmol/L (3.3-5.1); Sodium 141 mmol/L (135-145)
--- NOTE | 2021-02-04 22:51 | ED.ABDPAIN ---
HPI - Abdominal Pain General Chief Complaint: Abdominal Pain Stated Complaint: Diverticulitis? Time Seen by Provider: 02/04/21 22:40 Source: patient Mode of arrival: ambulatory Limitations: no limitations History of Present Illness HPI narrative: 65-year-old male with a past medical history of diverticulosis here with complaints of left lower quadrant abdominal pain with nausea and diarrhea since Wednesday evening. No vomiting, fevers, chills, urinary symptoms. Seen at a walk-in clinic earlier today and had a negative test for COVID. Was referred to the emergency department for imaging Related Data Home Medications Medication Instructions Recorded Confirmed omeprazole 20 mg tablet,delayed 20 mg PO DAILY 01/25/20 01/25/20 release Previous Rx's Medication Instructions Recorded magnesium oxide 400 - 800 mg PO BEDTIME 30 Days 02/27/20 #60 tab amoxicillin 875 mg-potassium 1 tab PO BID 10 Days #20 tab 06/05/20 clavulanate 125 mg tablet (Augmentin) metronidazole 500 mg tablet 500 mg PO BID 10 Days #20 tab 06/05/20 (Flagyl) ondansetron HCl 4 mg tablet 4 mg PO Q8H PRN #14 tab 06/05/20 (Zofran) prednisone 20 mg tablet 40 mg PO DAILY 5 Days #10 tab 06/05/20 amoxicillin 875 mg-potassium 1 tab PO BID #14 tab 02/05/21 clavulanate 125 mg tablet (Augmentin) dicyclomine 10 mg capsule 10 mg PO TID PRN #10 cap 02/05/21 Allergies Allergy/AdvReac Type Severity Reaction Status Date / Time doxycycline [DOXYCYCLINE] Allergy Severe Anaphylaxis Verified 02/04/21 19:20 Review of Systems Review of Systems Yes all other systems are reviewed and are negative Constitutional: Reports no additional constitutional complaints, Denies body ache(s), Denies chills, Denies fever(s), Denies headache(s) and Denies weakness Eyes: Reports no additional eye complaints and Denies change in vision Reports system reviewed and no additional complaints, except as documented, Denies dizziness, Denies headache(s), Denies nasal congestion, Denies nasal discharge and Denies neck pain Cardiovascular: Reports no additional cardiovascular complaints, Denies chest pain, Denies leg edema and Denies dyspnea Respiratory: Reports no additional respiratory complaints, Denies cough and Denies dyspnea Gastrointestinal: Reports no additional gastrointestinal complaints, Reports abdominal pain, Reports diarrhea, Reports nausea and Denies vomiting Genitourinary: Denies urinary incontinence Musculoskeletal: Reports no additional musculoskeletal complaints, Denies back pain, Denies arthralgias, Denies joint swelling, Denies neck pain, Denies numbness and Denies tingling Skin/Breast: Reports system reviewed and no additional complaints, except as docu and Denies rash Reports system reviewed and no additional complaints, except as documented, Denies Abnormal speech present, Denies dizziness, Denies headache(s), Denies numbness, Denies tingling and Denies weakness Physical Exam Vital Signs: Vital Signs: Last Vital Signs Temp 98.2 F 02/04/21 19:21 Pulse 65 02/04/21 19:21 Resp 18 02/04/21 19:21 BP 125/80 02/04/21 19:21 Pulse Ox 98 02/04/21 19:21 Body Mass Index 28.4 Const: General: cooperative, healthy appearing, comfortable and no acute distress Orientation/consciousness: patient oriented x3 Limitations: no limitations HENMT: Head: Yes normal to inspection Ears: hearing grossly normal bilaterally General nose exam: Normal external nose present Face and sinus: Yes normal facial exam Mouth: Normal oral and palatal mucosa present Throat: Yes posterior oropharynx normal Eyes: General: appearance normal, both eyes and all related structures Pupils: Equal, round and reactive pupils present Neck: Neck: Yes normal visual inspection Chest: Chest palpation & inspection: normal inspection of the chest Resp: Effort & Inspection: normal respiratory effort Auscultation: clear to auscultation bilaterally Cardio: Rate: regular rate Rhythm: regular rhythm Peripheral pulses: Peripheral pulses 2+ throughout GI: Inspection: Yes normal to inspection Palpation (GI): Soft to palpation and Tenderness to palpation present (GI) (Left lower quadrant with rebound) Auscultation: normal bowel sounds Back/Spine/Pelvis: Thoracic/Lumbar Spine: thoracic and lumbar spine normal to inspection Skin: General skin exam: no rashes or lesions noted Neuro: General: patient oriented x3, no focal motor deficits and normal sensation to monofilament Cranial nerves: Yes Equal, round and reactive pupils present Cognition (Neuro): normal cognition Speech: No Abnormal speech present Gait exam (Neuro): Normal gait present Motor exam (neuro): 5/5 motor strength present throughout Extrem: General: Yes normal to inspection Course Course Course Narrative: 65-year-old male with a past medical history of diverticulosis here with complaints of left lower quadrant pain since Wednesday. No other symptoms. On exam has tenderness to left lower quadrant with rebound. Will check labs, UA, CT abdomen and pelvis 0115-CT scan shows severe diverticulosis with no clear diverticulitis. However based on patient's clinical exam and history of diverticulosis with diverticulitis in the past will treat with course of antibiotics. Reviewed worrisome signs and symptoms of when to return to the emergency department. Comfortable discharge home. MDM - Abdominal Pain MDM Narrative Medical decision making narrative: Diverticulitis Medical Records Attestation: I reviewed the patient's medical records. Lab Data Attestation: I reviewed the patient's lab results. Result diagrams: 02/04/21 19:42 02/04/21 19:42 Labs: Lab Results 02/04/21 02/04/21 02/05/21 Range/Units 19:42 19:42 00:29 WBC 8.6 (4.8-10.8) X10*3/uL RBC 4.74 (4.60-5.80) X10*6/uL Hgb 15.6 (14.0-18.0) g/dl Hct 44.3 (42-52) % MCV 93.5 (80-98) fL MCH 32.9 (27.0-33.0) pg MCHC 35.2 (31.0-36.0) g/dl RDW 12.2 (11.0-16.0) % Plt Count 234 (160-400) X10*3/uL MPV 10.8 (9.4-12.4) fL Immature Gran % (Auto) 0.2 (0.0-0.4) % Neut % (Auto) 66.3 (45-73) % Lymph % (Auto) 24.5 (20-40) % [place] % (Auto) 6.4 (2-11) % Eos % (Auto) 1.9 (0-4) % Baso % (Auto) 0.7 (0-2) % Lymph # (Auto) 2.1 (1.2-4.9) X10*3/uL [place] # (Auto) 0.6 (0.1-1.2) X10*3/uL Eos # (Auto) 0.2 (0.0-0.4) X10*3/uL Baso # (Auto) 0.1 (0.0-0.2) X10*3/uL Abs Immat Gran (auto) 0.02 (0.00-0.03) X10*3/uL Absolute Neuts (auto) 5.7 (2.0-8.3) X10*3/uL Absolute Nucleated RBC 0.000 (0.0-0.012) X10*3/uL Nucleated RBC % (auto) 0.0 (0.0-0.2) /100WBC Sodium 141 (135-145) mmol/L Potassium 4.3 (3.3-5.1) mmol/L Chloride 105 (96-108) mmol/L Carbon Dioxide 28 (22-29) mmol/L Anion Gap 12 (12-20) BUN 11 (9-16) mg/dL Creatinine 1.10 (0.5-1.4) mg/dL Estim Creat Clear Calc 76.7 Estimated GFR > 60 Random Glucose 94 (60-115) mg/dL Calcium 9.2 (8.4-10.2) mg/dL Total Bilirubin 0.7 (0.0-1.0) mg/dL AST 19 (5-37) U/L ALT 20 (0-40) U/L Alkaline Phosphatase 57 (39-117) U/L Total Protein 7.0 (6.5-8.0) g/dL Albumin 4.2 (3.5-5.0) g/dL Urine Color YELLOW Urine Appearance CLEAR Urine pH 6.0 (5.0-8.0) Ur Specific [place] 1.025 (1.005-1.025) Urine Protein NEG (NEG-TRACE) MG/DL Urine Glucose (UA) NEG (NEG) MG/DL Urine Ketones 5 (NEG) MG/DL Urine Blood NEG (NEG) Urine Nitrite NEG (NEG) Ur Leukocyte Esterase NEG (NEG) Imaging Data CT scan - abdomen: Attestation: I personally reviewed and interpreted this imaging study as follows: Radiologist's impression: FINDINGS: LUNG BASES: The visualized lung bases demonstrate subsegmental atelectasis.? LIVER, GALLBLADDER, AND BILIARY TREE: The liver is normal in size, shape, and attenuation. No focal hepatic lesion or biliary ductal dilatation is present. The gallbladder is unremarkable with no evidence of radiopaque gallstones, gallbladder wall thickening, or obvious pericholecystic inflammatory changes.? PANCREAS: Unremarkable.? SPLEEN: Unremarkable.? ADRENAL GLANDS: Unremarkable.? KIDNEYS AND URETERS: The kidneys are normal in size, shape, and attenuation. No hydronephrosis, hydroureter, or obstructing calculi seen. Redemonstrated right renal cysts; no follow-up required. BLADDER: Unremarkable.? GASTROINTESTINAL TRACT: Small gastric diverticulum noted off the fundus. No evidence of bowel obstruction. There is colonic diverticulosis without convincing evidence for diverticulitis. No significant bowel wall thickening is seen. The appendix is unremarkable. No free fluid or free air is seen.? ABDOMINAL WALL: No significant hernia is appreciated. LYMPH NODES: Normal. VASCULAR: Scattered atherosclerotic calcifications are noted. PELVIC VISCERA: Unremarkable.? OSSEOUS STRUCTURES: Scattered degenerative changes are noted in the spine.? CT/CT abdomen pelvis w con IMPRESSION: No acute findings identified in the abdomen/pelvis. Colonic diverticulosis without convincing diverticulitis. Discharge Plan Discharge Clinical Impression: Diverticulosis Patient Disposition: Home, Self-Care Instructions: Diverticulosis (ED) Additional Instructions: You have severe diverticulosis on the CT scan. There is no clear diverticulitis however we treating for presumed diverticulitis Take the antibiotics with food Prescriptions: New amoxicillin-pot clavulanate [Augmentin] 875-125 mg tablet 1 tab PO BID Qty: 14 RF: 0 dicyclomine 10 mg capsule 10 mg PO TID PRN (Reason: abdominal discomfort) Qty: 10 RF: 0 No Action ondansetron HCl [Zofran] 4 mg tablet 4 mg PO Q8H PRN (Reason: nausea and vomiting) Qty: 14 RF: 0 metronidazole [Flagyl] 500 mg tablet 500 mg PO BID 10 Days Qty: 20 RF: 0 amoxicillin-pot clavulanate [Augmentin] 875-125 mg tablet 1 tab PO BID 10 Days Qty: 20 RF: 0 prednisone 20 mg tablet 40 mg PO DAILY 5 Days Qty: 10 RF: 0 omeprazole 20 mg Tablet,Delayed Release (Dr/Ec) 20 mg PO DAILY RF: 0 magnesium oxide 400 mg magnesium tablet 400 - 800 mg PO BEDTIME 30 Days Qty: 60 RF: 3 Referrals: Abare,Dung [Primary Care Provider] - 2 days Interventions: ED Discharge Assessment Last Done: 02/05/21 01:18 [facility] Past Medical History Attestation statement: The following information was validated with the patient. Source: old records reviewed and nursing notes reviewed Medical History Diverticulosis Diverticulosis of colon Family history of colon cancer in mother Lab test negative for COVID-19 virus Postprandial abdominal bloating Rectal bleeding Surgical History History of esophagogastroduodenoscopy (EGD) Hx of colonoscopy Family History Family History Mother Colon cancer Other Family history of colon cancer in mother Social History Social History Alcohol intake: current Alcohol intake frequency: a few times a week Alcohol type: beer Patient Tobacco Use Status: Never used Tobacco Advance Directives: No Advance Directives Information Provided: No
[2021-02-04] MEDS: 0.9 % Sodium Chloride 1,000 ML 999 ML IV (22:52)
[2021-02-05] MEDS: iohexoL 350 MG/ML 100 ML INFUS..BTL 85 ML IV (00:16)
[2021-02-05 00:37] LABS: Appearance Urine CLEAR; Color Urine YELLOW; Glucose Urine UA NEG (NEG); Leukocyte Esterase Urine NEG (NEG); Nitrite Urine NEG (NEG); Specific Gravity - Urine 1.025 (1.005-1.025); Urine Blood NEG (NEG); Urine Ketones 5 MG/DL (NEG); Urine Protein NEG (NEG-TRACE)
== END 2021-02-05 01:20 | disposition home or self-care (01) ==
PROVIDERS: Emergency Provider Emergency Medicine; PCP Hospitalist
DX: K57.90 Diverticulosis of intestine, part unspecified, without perforation or abscess without bleeding (principal)
CPT/HCPCS: 36415; 74177; 80053; 81003; 85025; 96360; 99284; 99285; Q9967

== ENCOUNTER 2023-10-29 17:42 | Emergency (ER) | payer OTHER, SELFPAY ==
--- NOTE | ~2023-10-29 | XR_ITS ---
EXAMINATION: XR SHOULDER, LEFT CLINICAL INFORMATION: Fall. Pain. COMPARISON: None available. TECHNIQUE: Three views of the left shoulder. FINDINGS: The bones and soft tissues are normal. No fracture. Glenohumeral and acromioclavicular alignment is anatomic with normal joint space. No abnormal soft tissue calcifications. XR/XR shoulder LT min 2V IMPRESSION: Normal left shoulder.
--- NOTE | ~2023-10-29 | CT_ITS ---
EXAMINATION CT HEAD WITHOUT CONTRAST CT CERVICAL SPINE WITHOUT CONTRAST CLINICAL INFORMATION: Fall, pain COMPARISON: CT head 06/05/2020 TECHNIQUE: CT of the head was performed without intravenous contrast. Reformatted axial, coronal, and sagittal images were reviewed. Then, multidetector CT of the cervical spine was performed without intravenous contrast. Reformatted axial, coronal and sagittal images were reviewed. This CT examination was performed using dose optimization techniques as appropriate, variously including the following: *Automated exposure control *Adjustment of mA and/or kV according to patient size (this includes techniques or standardized protocols for targeted exams where dose is matched to indication/reason for exam; i.e. extremities or head) *Use of iterative reconstruction technique DLP: 1271 mGy-cm FINDINGS: HEAD: No intracranial hemorrhage, extra-axial fluid collection, or midline shift is identified. Butt-white matter differentiation is preserved. Results of the cerebral sulci with commensurate ventriculomegaly consistent with age-related cerebral volume loss. Basal cisterns are patent. Hyperdense intracranial vasculature. Mucosal thickening of bilateral frontal sinuses. Mastoid air cells and middle ear cavities are clear. No acute calvarial fractures. CERVICAL SPINE: There is no fracture, malalignment or prevertebral soft tissue abnormality seen in the cervical spine. There is no abnormal widening of the predental space, separation of the lateral masses of C1 or facet joint distraction. Multilevel degenerative changes of the cervical spine, worst at C3-C4 and C5-C6 where there is mild central canal and bilateral neural foraminal stenosis. The visualized portions of the lung parenchyma is unremarkable. CT/CT cervical spine wo IV con IMPRESSION: CT HEAD: 1. No acute intracranial abnormality. 2. Age-related cerebral volume loss. 3. Hyperdense intracranial vasculature, which can be seen in the setting of elevated hematocrit, polycythemia, or severe hydration. In addition, there may also be seen in setting of recent intravenous contrast administration (although no history of this is provided). There is no associated loss of butt-white matter differentiation to suggest a territorial infarct. This finding is also similar in appearance to prior noncontrast CT head in 2020. CT CERVICAL SPINE: 1. No acute fracture or malalignment of the cervical spine. 2. Degenerative changes at C3-C4 and C5-C6 resulting in mild central canal and bilateral neural foraminal stenosis.
--- NOTE | 2023-10-29 17:53 | ED.FALL ---
HPI - Fall General Chief Complaint: Extremity Injury, Upper Stated Complaint: fell, injured shoulder Time Seen by Provider: 10/29/23 20:30 Source: patient and RN notes reviewed Limitations: no limitations History of Present Illness HPI Narrative: 68-year-old male presents for evaluation of left shoulder pain. Patient states at approximately 10:00 a.m. this morning he was working on his deck when he slipped on a loose board, causing him to fall down nearly an entire unfinished set of steps, onto the stringers. He did not fall directly on the ground. Patient states he thinks he braced himself with his left arm. He is currently complaining of pain to the left shoulder. It is worse with movement. He took Tylenol shortly after the incident. He did not fall onto it. He did not strike his head. Denies any head neck or back pain. He right tibia. He is up-to-date on tetanus. He is right-hand dominant. He denies any paresthesia or paralysis. Related Data Home Medications ?Medication ?Instructions ?Recorded ?Confirmed omeprazole 20 mg tablet,delayed 20 mg PO DAILY 01/25/20 01/25/20 release Previous Rx's ?Medication ?Instructions ?Recorded magnesium oxide 400 - 800 mg (1 - 2 x 400 mg 02/27/20 magnesium) PO BEDTIME 30 days #60 tabs amoxicillin 875 mg-potassium 1 tab PO BID 10 days #20 tabs 06/05/20 clavulanate 125 mg tablet (Augmentin) metronidazole 500 mg tablet 500 mg PO BID 10 days #20 tabs 06/05/20 (Flagyl) ondansetron HCl 4 mg tablet 4 mg PO Q8H PRN nausea and 06/05/20 (Zofran) vomiting #14 tabs prednisone 20 mg tablet 40 mg (2 x 20 mg) PO DAILY rash 5 06/05/20 days #10 tabs amoxicillin 875 mg-potassium 1 tab PO BID #14 tabs 02/05/21 clavulanate 125 mg tablet (Augmentin) dicyclomine 10 mg capsule 10 mg PO TID PRN abdominal 02/05/21 discomfort #10 caps oxycodone 5 mg tablet 5 mg PO Q6H PRN severe pain (scale 10/29/23 score 7-10) #10 tabs Allergies Allergy/AdvReac Type Severity Reaction Status Date / Time doxycycline [DOXYCYCLINE] Allergy Severe Anaphylaxis Verified 10/29/23 17:56 Review of Systems Constitutional: Constitutional: Denies chills, Denies fever(s) and Denies headache(s) Eyes: Eyes: Denies change in vision and Denies other (No redness.) ENT: Denies headache(s), Denies nasal congestion and Denies neck pain Cardiovascular: Cardiovascular: Denies chest pain, Denies dyspnea, Denies dyspnea on exertion and Denies orthopnea Respiratory: Respiratory: Denies cough, Denies dyspnea and Denies dyspnea on exertion Gastrointestinal: Gastrointestinal: Denies abdominal pain, Denies melena, Denies hematochezia, Denies diarrhea, Denies nausea and Denies vomiting Musculoskeletal: Musculoskeletal: Denies back pain, Reports limited range of motion, Denies muscle weakness, Denies neck pain and Denies numbness Neurologic: Denies headache(s), Denies focal weakness and Denies numbness Psychiatric: Psychiatric: Denies depression [facility] Past Medical History Medical History Family history of colon cancer in mother Diverticulosis of colon Postprandial abdominal bloating Rectal bleeding Lab test negative for COVID-19 virus Diverticulosis Surgical History History of esophagogastroduodenoscopy (EGD) Hx of colonoscopy Family History Family History Mother Colon cancer Other Family history of colon cancer in mother Social History Social History Alcohol intake: current Alcohol intake frequency: a few times a week Alcohol type: beer Patient Tobacco Use Status: Never used Tobacco Advance Directives: No Advance Directives Information Provided: No Do you have a plan to hurt others: No Plan Physical Exam Vital Signs: Vital Signs: Last Vital Signs Temp 98.2 F 10/29/23 21:56 Pulse 60 10/29/23 21:56 Resp 16 10/29/23 21:56 BP 151/90 H 10/29/23 21:56 Pulse Ox 98 10/29/23 21:56 O2 Del Method Room Air 10/29/23 21:56 BMI result Body Mass Index 28.4 Const: Other: Proximally 2 cm superficial skin tear to the left distal anterior tibia. No active bleeding. General: cooperative Limitations: no limitations HEENT: Other: Pupils are equal round reactive to light. There is no nystagmus. Oropharynx is moist. Neck: Other: No spinous, paraspinous or paravertebral tenderness Resp: Auscultation: clear to auscultation bilaterally Cardio: Rate: regular rate Rhythm: regular rhythm Extrem: Other: Full range of motion of the right arm. Decreased range of motion of the left arm secondary to pain at the shoulder. There is diffuse tenderness to the left anterior shoulder and bicipital groove. There is no crepitus fluctuance. There is no ecchymosis noted. Difficulty with abduction. Radial pulses are +2 and equal bilaterally. Motion Picture Photographer is 5/5 bilaterally. Flexion and extension at the elbow is intact. Pronation and supination is intact Course Course Course Narrative: This is an RME performed by Sin Ruvalcaba CNP: Additional HPI, ROS, PE not included below will be deferred to primary provider. Patient is a 68-year-old male presents emergency department for evaluation of traumatic left shoulder pain. Reports an accidental trip and fall while building his deck earlier today at 10:00, severe pain and inability to move the left shoulder, pain upon pronation forearm, 2+ radial pulse. Denies numbness or tingling to the extremity. Plan to obtain XR. Reports fall of approximately 10-12 feet, Denies head strike or loss of consciousness, given age and mechanism, will obtain CT of the head. Reevaluation(s) Reevaluation #1: Reviewed CT results, no acute process. Reviewed reviewed results with Dr. Martis. Patient has a ride home and feels comfortable with discharge plan. Reviewed all discharge instructions including sling and caution with medications. Orthopedic referral provided. No further questions at this time. Medications Administered Discontinued Medications Generic Name Dose Route Start Last Admin Trade Name Angi PRN Reason Stop Dose Admin Bacitracin 1 appl 10/29/23 21:08 10/29/23 21:16 Bacitracin Oint 0.9 Gm Packet TOPICAL 10/29/23 21:09 1 appl ONCE ONE Administration Protocol Oxycodone HCl 5 mg 10/29/23 21:17 10/29/23 21:29 Oxycodone Hcl Immed Release 5 Mg Tablet PO 10/29/23 21:18 5 mg ONCE ONE Administration Medical Decision Making Medical Decision Making MDM Narrative: 68-year-old male with pain to the left shoulder after a fall. X-ray does not reveal any acute fracture. CT of the brain and cervical spine is pending at this time. Concern for internal injury such as rotator cuff, for MRSA or tendon. Limited exam due to pain. Patient agreeable to trial of oxycodone while in the emergency department. A sling applied to the left arm for comfort with good relief. Differential Diagnosis Differential Diagnoses: The differential diagnosis associated with the presentation includes Dislocation Fracture Contusion Rotator cuff injury Ligamentous injury Admission/Observation Consideration of admission/observation: Escalation of care including admission/observation considered Radiology Impression Discussion of test interpretation with radiology: I have reviewed the radiologist's reading. Radiologist Impression: [address] [address] [address] Scan Report Signed Patient: Carlton Nuñez MR#: [id number] : 1955 Acct:[id number] Age/Sex: 68 / M ADM Date: 10/29/23 Loc: HO.ED Attending Dr: Ordering Physician: Tiffanie Hawk Date of Service: 10/29/23 Procedure(s): CT cervical spine wo IV con Accession Number(s): [id number] cc: Tiffanie Hawk; Physician,None ~ EXAMINATION CT HEAD WITHOUT CONTRAST CT CERVICAL SPINE WITHOUT CONTRAST CLINICAL INFORMATION: Fall, pain COMPARISON: CT head 06/05/2020 TECHNIQUE: CT of the head was performed without intravenous contrast. Reformatted axial, coronal, and sagittal images were reviewed. Then, multidetector CT of the cervical spine was performed without intravenous contrast. Reformatted axial, coronal and sagittal images were reviewed. This CT examination was performed using dose optimization techniques as appropriate, variously including the following: *Automated exposure control *Adjustment of mA and/or kV according to patient size (this includes techniques or standardized protocols for targeted exams where dose is matched to indication/reason for exam; i.e. extremities or head) *Use of iterative reconstruction technique DLP: 1271 mGy-cm FINDINGS: HEAD: No intracranial hemorrhage, extra-axial fluid collection, or midline shift is identified. Butt-white matter differentiation is preserved. Results of the cerebral sulci with commensurate ventriculomegaly consistent with age-related cerebral volume loss. Basal cisterns are patent. Hyperdense intracranial vasculature. Mucosal thickening of bilateral frontal sinuses. Mastoid air cells and middle ear cavities are clear. No acute calvarial fractures. CERVICAL SPINE: There is no fracture, malalignment or prevertebral soft tissue abnormality seen in the cervical spine. There is no abnormal widening of the predental space, separation of the lateral masses of C1 or facet joint distraction. Multilevel degenerative changes of the cervical spine, worst at C3-C4 and C5-C6 where there is mild central canal and bilateral neural foraminal stenosis. The visualized portions of the lung parenchyma is unremarkable. CT/CT cervical spine wo IV con IMPRESSION: CT HEAD: 1. No acute intracranial abnormality. 2. Age-related cerebral volume loss. 3. Hyperdense intracranial vasculature, which can be seen in the setting of elevated hematocrit, polycythemia, or severe hydration. In addition, there may also be seen in setting of recent intravenous contrast administration (although no history of this is provided). There is no associated loss of butt-white matter differentiation to suggest a territorial infarct. This finding is also similar in appearance to prior noncontrast CT head in 2020. CT CERVICAL SPINE: 1. No acute fracture or malalignment of the cervical spine. 2. Degenerative changes at C3-C4 and C5-C6 resulting in mild central canal and bilateral neural foraminal stenosis. Dictated By: Walter Garcia Signed By: <Electronically signed by Walter Garcia in [place]> 10/29/232111 DD/ 19 TD/TT: Insurance Application Investigator: [place] [id number] XRay Report Signed Patient: Carlton Nuñez MR#: [id number] : 1955 Acct:[id number] Age/Sex: 68 / M ADM Date: 10/29/23 Loc: HO.ED Attending Dr: Ordering Physician: Ivy Ruvalcaba CNP Date of Service: 10/29/23 Procedure(s): XR shoulder LT min 2V Accession Number(s): [id number] cc: Ivy Ruvalcaba CNP; Physician,None ~ EXAMINATION: XR SHOULDER, LEFT CLINICAL INFORMATION: Fall. Pain. COMPARISON: None available. TECHNIQUE: Three views of the left shoulder. FINDINGS: The bones and soft tissues are normal. No fracture. Glenohumeral and acromioclavicular alignment is anatomic with normal joint space. No abnormal soft tissue calcifications. XR/XR shoulder LT min 2V IMPRESSION: Normal left shoulder. Dictated By: Phuc Emmanuel MD Signed By: <Electronically signed by Phuc Emmanuel MD in [place]> 10/29/232023 DD/ 03 TD/TT: Insurance Application Investigator: PRASANNA Prescription Management I considered prescription management with: Pain Medication Discharge Plan Discharge Clinical Impression: Left shoulder strain Qualifiers: Encounter type: initial encounter Qualified Code(s): S46.912A - Strain of unspecified muscle, fascia and tendon at shoulder and upper arm level, left arm, initial encounter Skin tear of left lower leg without complication Qualifiers: Encounter type: initial encounter Qualified Code(s): S81.812A - Laceration without foreign body, left lower leg, initial encounter Patient Disposition: Home, Self-Care Instructions: Muscle Strain (ED), Rotator Cuff Injury (ED), How to Use a Sling (ED) Additional Instructions: Your x-ray today does not show any broken bones. However there is concern for further internal injury that will need to be followed up by an orthopedist. Rest. Ice. Avoid strenuous activity. Sling as directed. Oxycodone as directed for severe pain. This medication may make you drowsy and therefore do not drink alcohol, operate heavy machinery or drive a car while taking this medication. This medication could have the potential for dependence. Use with caution and sparingly. You may continue Tylenol or ibuprofen, available [id number], use as directed. Follow-up with your primary care provider. Call this week to schedule a follow-up appointment. Return to the emergency department if you have any worsening of symptoms, or any concerns. Get well soon! Prescriptions: New oxycodone 5 mg tablet 5 mg PO Q6H PRN (Reason: severe pain (scale score 7-10)) Qty: 10 0RF Rx Instructions: Partial Fill upon patient request. No Action ondansetron HCl [Zofran] 4 mg tablet 4 mg PO Q8H PRN (Reason: nausea and vomiting) Qty: 14 0RF metronidazole [Flagyl] 500 mg tablet 500 mg PO BID 10 Days Qty: 20 0RF amoxicillin-pot clavulanate [Augmentin] 875-125 mg tablet 1 tab PO BID 10 Days Qty: 20 0RF prednisone 20 mg tablet 40 mg PO DAILY 5 Days Qty: 10 0RF omeprazole 20 mg Tablet,Delayed Release (Dr/Ec) 20 mg PO DAILY amoxicillin-pot clavulanate [Augmentin] 875-125 mg tablet 1 tab PO BID Qty: 14 0RF dicyclomine 10 mg capsule 10 mg PO TID PRN (Reason: abdominal discomfort) Qty: 10 0RF magnesium oxide 400 mg magnesium tablet 400 - 800 mg PO BEDTIME 30 Days Qty: 60 3RF Rx Instructions: take 1-2 tablets by mouth at bedtime Referrals: Akilah Roberts PA-C [Physician Injection Molding Machine Tender] - 1 week (Injury to Left shoulder) Interventions: ED Discharge Assessment Last Done: 10/29/23 21:56 Discharge Date/Time: 10/29/23 21:56 Print Language: Venezuelan
[2023-10-29 17:54] VITALS: BP 158/70; PULSE 77; RESP 20; TEMP 36.6; O2SAT 96; BMI 28.4
[2023-10-29] MEDS: Bacitracin Oint 0.9 GM PACKET 1 APPL TOPICAL (21:16)
[2023-10-29] MEDS: oxyCODONE HCl Immed Release 5 MG TABLET PO (21:29)
--- NOTE | 2023-10-29 21:30 | PC.NURSE ---
pt medicated per provider order. effectiveness pending.
[2023-10-29 21:31] VITALS: BP 151/90; PULSE 60; RESP 16; O2SAT 98
[2023-10-29 21:56] VITALS: BP 151/90; PULSE 60; RESP 16; TEMP 36.8; O2SAT 98
== END 2023-10-29 21:56 | disposition home or self-care (01) ==
PROVIDERS: Emergency Provider Emergency Medicine
DX: S46.912A Strain of unspecified muscle, fascia and tendon at shoulder and upper arm level, left arm, initial encounter (principal); S81.812A Laceration without foreign body, left lower leg, initial encounter; W10.8XXA Fall (on) (from) other stairs and steps, initial encounter; Y93.9 Activity, unspecified; Y92.018 Other place in single-family (private) house as the place of occurrence of the external cause; Y99.9 Unspecified external cause status
CPT/HCPCS: 70450; 72125; 73030; 99283; 99284